=== PATIENT | male | born 1975 | race Caucasian/White ===

== ENCOUNTER → 2017-05-18 | Outpatient (CLI) | payer OTHER ==
--- NOTE | 2017-05-18 21:43 | CT ---
EXAMINATION TYPE: CT abdomen pelvis w con DATE OF EXAM: 05/18/2017 COMPARISON: NONE HISTORY: Abdominal pain [id number]. CT DLP: 563.0 mGycm Automated exposure control for dose reduction was used. TECHNIQUE: Helical acquisition of images was performed from the lung bases through the pelvis. CONTRAST: Performed with Oral Contrast and with IV Contrast, patient injected with 100 mL of Omnipaque 300. FINDINGS: Lung bases are clear. There is no pleural effusion. Heart size is normal. Liver spleen pancreas gallbladder appear normal. Bile ducts are not dilated. There is no adrenal mass . Kidneys show satisfactory contrast opacification. There is no hydronephrosis. There is no retroperi toneal adenopathy. There is no ascites. I see no intestinal wall thickening. There are no dilated loops. Bladder distend s smoothly. There is no free air. The bony structures are intact. Appendix is not seen. There is no s ign of appendicitis. IMPRESSION: NEGATIVE CT SCAN OF THE ABDOMEN AND PELVIS.
== END | disposition home or self-care (01) ==
LOC: RADCTMAIN 19:00
PROVIDERS: ATTEND Surgery
DX: R10.84 Generalized abdominal pain (principal); R14.0 Abdominal distension (gaseous)
CPT/HCPCS: 74177; Q9967

== ENCOUNTER 2021-06-02 17:39 | Emergency (ER) | payer OTHER ==
[2021-06-02 17:43] VITALS: BP 117/81; PULSE 89; RESP 16; TEMP 98.2
[2021-06-02] MEDS ORDERED: BACITRACIN/POLYMYX 500-10,000 UNIT/GM OINT 14 GM TUBE TOPICAL STA (18:16)
[2021-06-02] MEDS ORDERED: KETOROLAC 15 MG/ML 1 ML VIAL IM STA (18:18)
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
== END 2021-06-02 19:05 | disposition home or self-care (01) ==
LOC: EC 17:39
DX: T25.222A Burn of second degree of left foot, initial encounter (principal); X08.8XXA Exposure to other specified smoke, fire and flames, initial encounter
CPT/HCPCS: 96372; 99283; J1885